=== PATIENT | male | born 2000 | race Caucasian/White ===

== ENCOUNTER 2019-07-14 09:18 | Emergency (ER) | payer OTHER ==
[2019-07-14 09:24] VITALS: BP 163/92
--- NOTE | 2019-07-14 09:56 | ED Physician Documentation ---
History of Present Illness - Stated complaint Stated Complaint: Sweating - Chief complaint Chief Complaint: General - History obtained from History obtained from: Patient - History of Present Illness Timing: Other (2 years) Pain level max: 0 Pain level now: 0 - Additonal information Additional information: 19-year-old male states he has had problems with excessive sweating for the past 2 years. Has not seen a doctor for this. He states that [place], [place] in the computer it shows [place] arranging another appointment for him within the next 24 hours, he became panicked by this and came to the emergency department instead. No chest pain. No shortness of breath. No abdominal pain. No vomiting. No other symptoms. Nothing makes it better or worse Review of Systems Ten Systems: 10 systems reviewed and negative Constitutional: denies: Fever, Chills Nose: denies: Rhinorrhea / runny nose, Congestion Throat: denies: Sore throat Cardiac: denies: Chest pain / pressure, Palpitations Respiratory: denies: Cough GI: denies: Vomiting Skin: denies: Rash Musculoskeletal: denies: Neck pain, Back pain Neurologic: denies: Headache PD PAST MEDICAL HISTORY - Past Medical History Past Medical History: No - Past Surgical History Past Surgical History: No - Present Medications Home Medications: Ambulatory Orders Medication Instructions Recorded Confirmed No Known Home Medications 07/14/19 07/14/19 - Allergies Allergies/Adverse Reactions: Allergies Allergy/AdvReac Type Severity Reaction Status Date / Time No Known Drug Allergies Allergy Verified 07/14/19 09:24 - Social History Does the pt smoke?: No Smoking Status: Never smoker Does the pt drink ETOH?: No Does the pt have substance abuse?: No - Immunizations Immunizations are current?: Yes PD ED PE NORMAL - Vitals Vital signs reviewed: Yes - General General: Alert and oriented X 3, No acute distress, Well developed/nourished - HEENT HEENT: PERRL, Moist mucous membranes - Neck Neck: Supple, no meningeal sign - Cardiac Cardiac: RRR, Strong equal pulses - Respiratory Respiratory: No respiratory distress, Clear bilaterally - Abdomen Abdomen: Soft, Non tender, Non distended - Derm Derm: Warm and dry - Extremities Extremities: No edema - Neuro Neuro: Alert and oriented X 3 - Psych Psych: Normal mood, Normal affect Results - Vitals Vitals: Vital Signs - 24 hr 07/14/19 09:20 Temperature 37.0 C Heart Rate 70 Respiratory 20 Rate Blood Pressure 163/92 H O2 Saturation 98 Oxygen O2 Source Room air PD MEDICAL DECISION MAKING - ED course Complexity details: considered differential, d/w patient ED course: Patient with what appears to be hyperhidrosis. No emergency medical condition at this time. He will follow-up with his doctor for further care. Patient counseled regarding signs and symptoms for which I believe and urgent re- evaluation would be necessary. Patient with good understanding of and agreement to plan and is comfortable going home at this time This document was made in part using voice recognition software. While efforts are made to proofread this document, sound alike and grammatical errors may occur. Departure - Departure Disposition: 01 Home, Self Care Clinical Impression: Hyperhidrosis Condition: Good Instructions: Hyperhidrosis Follow-Up: your,doctor in 1 week [Other] Comments: Return if you worsen. Follow up with your doctor for further care.
== END 2019-07-14 10:13 | disposition home or self-care (01) ==
LOC: ED 09:18
DX: R61 Generalized hyperhidrosis (principal)
CPT/HCPCS: 99282; 99283